=== PATIENT | male | born 1950 | race Caucasian/White ===

== ENCOUNTER 2022-03-29 09:24 | Inpatient (IN) | payer OTHER ==
[~2022-03-29] VITALS: Ht 177.8 cm; Wt 156.7 kg
[~2022-03-29 09:24] MED LIST: ALDACTONE25 M1 PO; APRESOLINE25 MG PO; ASPIR LOW81 MG PO; CALCIUM500 M1 PO; CARVEDILOL12.5 MG PO; CEFAZOLIN2 GM/20 ML IV; CLOPIDOGREL75 MG PO; CO Q-10200 MG PO; FISH OIL 1,2001 EACH PO; GLUCOSAMINE CH1 EAC7 PO; GLUCOTROL5 MG PO; LIPITOR40 MG PO; LISINOPRIL20 MG PO; MEN 50 PLUS MU1 EACH PO; METOLAZONE2.5 MG PO; NAFCILLIN2 GM IJ; PRILOSEC20 M1 PO; PROAIR HFA8.5 GM INH; PROVENTIL HFA6.7 GM INH; VITAMIN D31000 UNI1 PO; ZESTORETIC 20-1 EACH PO
[2022-03-29 09:52] VITALS: BP 93/52
[2022-03-29 11:07] LABS: BASO % 0.2 % (0.0-1.0); EOS % 0.2 % (1.0-4.0); LYMPH # 0.8 10*3/uL (1.3-4.4); LYMPH % 7.3 % (27.0-41.0); MEAN CELL VOLUME 93.1 fl (80.0-94.0); MEAN CORPUSCULAR HGB 31.4 pg (27.0-31.0); MEAN CORPUSCULAR HGB CONC 33.7 g/dl (33.0-37.0); MEAN PLATELET VOLUME 11.6 fl (9.6-12.3); MONO # 0.9 10*3/uL (0.1-1.0); MONO % 7.7 % (3.0-9.0); NEUT # 9.6 10*3/uL (2.3-7.9); NEUT % 84.2 % (47.0-73.0); PLATELET COUNT AUTOMATED 144 10*3/uL (130-400); RED BLOOD COUNT 4.08 10*6/uL (4.50-5.90); RED CELL DISTRI WIDTH 12.7 % (0-14.5); WHITE BLOOD COUNT 11.4 10*3/uL (4.8-10.8)
[2022-03-29 11:23] LABS: ALKALINE PHOSPHATASE 51 U/L (45-117); BUN 18 mg/dl (7-24); CHLORIDE 104 mmol/L (98-107); CREATININE 1.36 mg/dL (0.70-1.30); LIPASE 101 U/L (73-393); SGOT/AST 15 IU/L (3-35); SGPT/ALT 25 U/L (12-78); SODIUM 139 mmol/L (136-145); TOTAL PROTEIN 6.8 gm/dL (6.4-8.2)
[2022-03-29 12:10] VITALS: BP 98/56
[2022-03-29 12:15] LABS: BILIRUBIN Negative (Negative); BLOOD Negative (Negative); CLARITY Clear (Clear); COLOR Dark Yellow (Yellow); GLUCOSE Negative (Negative); KETONE Negative (Negative); LEUKO ESTERASE Trace (Negative); NITRITE Negative (Negative); PH 7.5 (4.5-8.0); SPECIFIC GRAVITY 1.025 (1.001-1.030)
[2022-03-29 12:26] LABS: MUCOUS TRACE
[2022-03-29 14:36] VITALS: BP 115/41
[2022-03-29 17:05] VITALS: BP 94/45
[2022-03-29] MEDS ORDERED: FISH OIL 1,0001 EAC1 PO (18:25)
[2022-03-29] MEDS ORDERED: GLUCOSAMINE1000 MG PO (18:27)
[2022-03-29] MEDS ORDERED: SPIRIVA RESPIMAT4 GM INH (18:30)
[2022-03-29] MEDS ORDERED: ROSUVASTATIN CA20 MG PO (18:32)
[2022-03-29] MEDS ORDERED: NIFEDIPINE60 MG PO (18:33)
[2022-03-29 18:53] VITALS: BP 112/66
[2022-03-29 20:00] VITALS: BP 94/44
[2022-03-30] VITALS: BP 93/50
[2022-03-30 04:28] LABS: BASO % 0.3 % (0.0-1.0); EOS # 0.1 10*3/uL (0.0-0.4); LYMPH # 1.5 10*3/uL (1.3-4.4); LYMPH % 25.8 % (27.0-41.0); MEAN CELL VOLUME 93.4 fl (80.0-94.0); MEAN CORPUSCULAR HGB CONC 33.2 g/dl (33.0-37.0); MEAN PLATELET VOLUME 11.4 fl (9.6-12.3); MONO # 0.8 10*3/uL (0.1-1.0); MONO % 13.9 % (3.0-9.0); NEUT # 3.5 10*3/uL (2.3-7.9); NEUT % 58.8 % (47.0-73.0); PLATELET COUNT AUTOMATED 133 10*3/uL (130-400); RED BLOOD COUNT 4.07 10*6/uL (4.50-5.90); RED CELL DISTRI WIDTH 12.8 % (0-14.5)
[2022-03-30 04:39] LABS: BUN 20 mg/dl (7-24); CHLORIDE 99 mmol/L (98-107); CREATININE 1.37 mg/dL (0.70-1.30); POTASSIUM 3.4 mmol/L (3.5-5.1); SODIUM 138 mmol/L (136-145)
[2022-03-30 04:42] LABS: CHOLESTEROL 139 mg/dL (<200); LDL CHOLESTEROL 74 mg/dL (9-159); TRIGLYCERIDES 157 mg/dl (<150)
[2022-03-30 08:00] VITALS: BP 117/62
[2022-03-30 08:20] LABS: VITAMIN D, 25-HYDROXY 58.3 ng/mL (30-100)
[2022-03-30 12:00] VITALS: BP 97/55
[2022-03-30 16:00] VITALS: BP 107/62
[2022-03-30 20:00] VITALS: BP 99/48
[2022-03-31] VITALS: BP 98/45
[2022-03-31 06:49] LABS: BASO % 0.5 % (0.0-1.0); EOS # 0.1 10*3/uL (0.0-0.4); EOS % 1.7 % (1.0-4.0); HEMATOCRIT 41.9 % (42.0-52.0); LYMPH # 1.7 10*3/uL (1.3-4.4); LYMPH % 29.2 % (27.0-41.0); MEAN CELL VOLUME 94.4 fl (80.0-94.0); MEAN CORPUSCULAR HGB 31.3 pg (27.0-31.0); MEAN CORPUSCULAR HGB CONC 33.2 g/dl (33.0-37.0); MEAN PLATELET VOLUME 11.6 fl (9.6-12.3); MONO # 0.7 10*3/uL (0.1-1.0); MONO % 12.4 % (3.0-9.0); NEUT # 3.3 10*3/uL (2.3-7.9); PLATELET COUNT AUTOMATED 151 10*3/uL (130-400); RED BLOOD COUNT 4.44 10*6/uL (4.50-5.90); RED CELL DISTRI WIDTH 12.7 % (0-14.5); WHITE BLOOD COUNT 5.8 10*3/uL (4.8-10.8)
[2022-03-31 07:09] LABS: BUN 23 mg/dl (7-24); CHLORIDE 98 mmol/L (98-107); CREATININE 1.36 mg/dL (0.70-1.30); POTASSIUM 3.8 mmol/L (3.5-5.1); SODIUM 138 mmol/L (136-145)
[2022-03-31 08:00] VITALS: BP 130/76
[2022-03-31 12:00] VITALS: BP 116/54
[2022-03-31 16:00] VITALS: BP 117/55
[2022-03-31 20:00] VITALS: BP 113/63
[2022-04-01] VITALS: BP 115/56
[2022-04-01 05:34] LABS: BUN 25 mg/dl (7-24); CHLORIDE 103 mmol/L (98-107); CREATININE 1.26 mg/dL (0.70-1.30); POTASSIUM 3.6 mmol/L (3.5-5.1); SODIUM 141 mmol/L (136-145)
[2022-04-01 06:30] LABS: BASO % 0.4 % (0.0-1.0); EOS # 0.1 10*3/uL (0.0-0.4); EOS % 2.6 % (1.0-4.0); HEMATOCRIT 39.6 % (42.0-52.0); LYMPH # 2.1 10*3/uL (1.3-4.4); LYMPH % 37.7 % (27.0-41.0); MEAN CORPUSCULAR HGB 31.2 pg (27.0-31.0); MEAN CORPUSCULAR HGB CONC 32.8 g/dl (33.0-37.0); MEAN PLATELET VOLUME 11.9 fl (9.6-12.3); MONO # 0.8 10*3/uL (0.1-1.0); MONO % 13.9 % (3.0-9.0); NEUT # 2.5 10*3/uL (2.3-7.9); NEUT % 45.2 % (47.0-73.0); PLATELET COUNT AUTOMATED 150 10*3/uL (130-400); RED BLOOD COUNT 4.17 10*6/uL (4.50-5.90); RED CELL DISTRI WIDTH 12.5 % (0-14.5); WHITE BLOOD COUNT 5.5 10*3/uL (4.8-10.8)
[2022-04-01 08:00] VITALS: BP 142/81
[2022-04-01 12:00] VITALS: BP 117/66
[2022-04-01] MEDS ORDERED: NIFEDIPINE ER30 M1 PO (12:57)
[2022-04-01] MEDS ORDERED: FUROSEMIDE40 MG PO (12:57)
[2022-04-01 20:00] VITALS: BP 128/64
[2022-04-02] VITALS: BP 109/55
[2022-04-02 08:00] VITALS: BP 122/62
[2022-04-02 12:00] VITALS: BP 129/70
[2022-04-02 15:22] VITALS: BP 138/61
== END 2022-04-02 17:53 | disposition home or self-care (01) | DRG 291 ==
LOC: ED 09:24 → EDHOLD 15:55 → 4E 15:55
PROVIDERS: Hospitalist; Internal Medicine; ADMIT Family Medicine; ATTEND Family Medicine
DX: I11.0 Hypertensive heart disease with heart failure (principal); I50.33 Acute on chronic diastolic (congestive) heart failure; N17.0 Acute kidney failure with tubular necrosis; J98.11 Atelectasis; N39.0 Urinary tract infection, site not specified; Z68.42 Body mass index [BMI] 45.0-49.9, adult; I35.0 Nonrheumatic aortic (valve) stenosis; D64.9 Anemia, unspecified; E80.6 Other disorders of bilirubin metabolism; K76.0 Fatty (change of) liver, not elsewhere classified; J44.9 Chronic obstructive pulmonary disease, unspecified; E11.69 Type 2 diabetes mellitus with other specified complication; E66.01 Morbid (severe) obesity due to excess calories; E78.5 Hyperlipidemia, unspecified; G47.33 Obstructive sleep apnea (adult) (pediatric); Z95.828 Presence of other vascular implants and grafts; Z87.891 Personal history of nicotine dependence; Z82.49 Family history of ischemic heart disease and other diseases of the circulatory system; Z80.0 Family history of malignant neoplasm of digestive organs; Z88.2 Allergy status to sulfonamides; Z88.8 Allergy status to other drugs, medicaments and biological substances; Z79.82 Long term (current) use of aspirin; Z79.899 Other long term (current) drug therapy

== ENCOUNTER 2024-01-05 12:44 | Emergency (ER) | payer OTHER ==
[~2024-01-05] VITALS: Ht 177.8 cm; Wt 161.5 kg
[~2024-01-05 12:44] MED LIST changes: +CEFTRIAXON2 GM/50 ML IV; +FISH OIL 1,0001 EAC1 PO; +FLUONAZOLE150 M1 PO; +FUROSEMIDE40 MG PO; +GLUCOSAMINE1000 MG PO; +GLUCOTROL XL5 MG PO; -GLUCOTROL5 MG PO; +LASIX40 MG PO; +METFORMIN HYDR500 MG PO; +NIFEDIPINE ER30 M1 PO; +NIFEDIPINE60 MG PO; +PREDNISONE10 MG PO; +PROCARDIA XL60 MG PO; +ROSUVASTATIN CA20 MG PO; +SPIRIVA RESPIMAT4 GM INH
[2024-01-05] MEDS ORDERED: ACETAMINOPHEN 325 MG TAB PO ONE (13:15)
[2024-01-05 13:33] LABS: BASO % 0.6 % (0.0-1.0); EOS # 0.2 10*3/uL (0.0-0.4); EOS % 3.7 % (1.0-4.0); HEMATOCRIT 37.1 % (42.0-52.0); LYMPH # 1.5 10*3/uL (1.3-4.4); MEAN CELL VOLUME 94.4 fl (80.0-94.0); MEAN CORPUSCULAR HGB CONC 31.8 g/dl (33.0-37.0); MEAN PLATELET VOLUME 10.9 fl (9.6-12.3); MONO # 0.6 10*3/uL (0.1-1.0); MONO % 12.2 % (3.0-9.0); NEUT # 2.6 10*3/uL (2.3-7.9); NEUT % 53.3 % (47.0-73.0); PLATELET COUNT AUTOMATED 158 10*3/uL (130-400); RED BLOOD COUNT 3.93 10*6/uL (4.50-5.90); RED CELL DISTRI WIDTH 13.6 % (0-14.5); WHITE BLOOD COUNT 4.9 10*3/uL (4.8-10.8)
[2024-01-05 13:43] LABS: ACT PARTIAL THROMBO TIME 28.5 SECONDS (20.0-32.1)
[2024-01-05] MEDS ORDERED: HYDRALAZINE HYD50 MG PO (13:45)
[2024-01-05] MEDS ORDERED: COREG12.5 M1 PO (13:46)
[2024-01-05] MEDS ORDERED: GLIPIZIDE5 MG PO (13:46)
[2024-01-05] MEDS ORDERED: CALCIUM 600 MG1 EA10 PO (13:47)
[2024-01-05] MEDS ORDERED: ASPIRIN81 M1 PO (13:47)
[2024-01-05 13:48] LABS: ALKALINE PHOSPHATASE 50 U/L (46-116); BUN 12 mg/dl (9-23); CHLORIDE 105 mmol/L (98-107); POTASSIUM 4.1 mmol/L (3.4-5.1); SGPT/ALT 28 U/L (5-49); TOTAL PROTEIN 6.9 gm/dL (6.0-8.0)
[2024-01-05] MEDS ORDERED: CO Q-1010 M2 PO (13:48)
[2024-01-05] MEDS ORDERED: PLAVIX75 M1 PO (13:48)
[2024-01-05] MEDS ORDERED: FISH OIL 1,0001 EAC7 PO (13:50)
[2024-01-05] MEDS ORDERED: ROSUVASTATIN CA40 MG PO (13:51)
[2024-01-05] MEDS ORDERED: DAILY VITE1 EACH PO (13:51)
[2024-01-05] MEDS ORDERED: METFORMIN XR500 MG PO (13:52)
[2024-01-05 13:53] LABS: BILIRUBIN Negative (Negative); BLOOD Negative (Negative); CLARITY Clear (Clear); COLOR Yellow (Yellow); GLUCOSE Negative (Negative); KETONE Negative (Negative); LEUKO ESTERASE Negative (Negative); NITRITE Negative (Negative); PH 7.5 (4.5-8.0); SPECIFIC GRAVITY <= 1.005 (1.001-1.030); UROBILINOGEN 0.2 E.U./dl (0.0-1.0)
[2024-01-05] MEDS ORDERED: OZEMPIC1 MG/0.71 SQ (13:53)
[2024-01-05 14:03] LABS: MUCOUS 1+
[2024-01-05] MEDS ORDERED: FUROSEMIDE 40 MG/4 ML VIAL IV ONE (15:15)
[2024-01-05] MEDS ORDERED: Ketorolac Tromethamine 15 MG/ML VIAL IV ONE (16:20)
== END 2024-01-05 16:27 | disposition home or self-care (01) ==
LOC: ED 12:44
PROVIDERS: Nurse Practitioner Family
DX: I11.0 Hypertensive heart disease with heart failure (principal); R51.9 Headache, unspecified; I50.9 Heart failure, unspecified; J44.9 Chronic obstructive pulmonary disease, unspecified; E78.5 Hyperlipidemia, unspecified; E11.65 Type 2 diabetes mellitus with hyperglycemia; Z88.2 Allergy status to sulfonamides; Z88.8 Allergy status to other drugs, medicaments and biological substances; Z90.89 Acquired absence of other organs; Z98.890 Other specified postprocedural states; Z87.891 Personal history of nicotine dependence

== ENCOUNTER → 2024-11-29 | Outpatient (CLI) | payer OTHER, MEDICARE ==
[~2024-11-29] MED LIST changes: +ASPIRIN81 M1 PO; +CALCIUM 600 MG1 EA10 PO; +CLEOCIN HCL300 MG PO; +CO Q-1010 M2 PO; +COREG12.5 M1 PO; +DAILY VITE1 EACH PO; +DOXYCYCLINE HY100 M3 PO; +FISH OIL 1,0001 EAC7 PO; +GLIPIZIDE5 MG PO; +HYDRALAZINE HYD50 MG PO; +LOPRESSOR25 MG PO; +METFORMIN XR500 MG PO; +OZEMPIC1 MG/0.71 SQ; +PLAVIX75 M1 PO; +ROSUVASTATIN CA40 MG PO; +VIBRAMYCIN100 MG PO
== END | disposition home or self-care (01) ==
LOC: RAD 08:55
PROVIDERS: ATTEND Internal Medicine
DX: J44.9 Chronic obstructive pulmonary disease, unspecified (principal); R06.02 Shortness of breath; G47.33 Obstructive sleep apnea (adult) (pediatric)